=== PATIENT | female | born 1970 | race Caucasian/White ===

== ENCOUNTER 2017-04-23 14:41 | Outpatient (CLI) | payer OTHER ==
--- NOTE | 2017-04-23 17:05 | MMO ---
BILATERAL DIGITAL SCREENING MAMMOGRAMS WITH CAD: 04/23/17 HISTORY: Baseline exam. Breast tissue is heterogeneously dense which may reduce the sensitivity of mammography. No suspicious mass or calcifications or architectural distortion is seen. IMPRESSION: BI-RADS 1: Negative Routine annual screening mammography (for women over age 40) POS: [facility]
== END 2017-04-23 14:42 | disposition home or self-care (01) ==
LOC: SCSMAMMO 14:41
PROVIDERS: ATTEND Family Medicine
DX: Z12.31 Encounter for screening mammogram for malignant neoplasm of breast (principal)
CPT/HCPCS: 77067